=== PATIENT | male | born 1985 | race Caucasian/White ===

== ENCOUNTER 2022-04-25 08:49 | Emergency (ER) | payer OTHER ==
[2022-04-25] MEDS ORDERED: Ondansetron 4 MG Tab.DIS PO STA (09:14)
[2022-04-25] MEDS ORDERED: Ketorolac 60 MG/2 ML SDV IM ONE (09:14)
[2022-04-25] MEDS ORDERED: Ketorolac 60 MG/2 ML SDV ONE (09:30)
[2022-04-25] MEDS ORDERED: Ondansetron 4 MG Tab.DIS ONE (09:30)
[2022-04-25] MEDS ORDERED: fentaNYL 100 MCG/2 ML SDV ONE (10:29)
[2022-04-25] MEDS ORDERED: fentaNYL 100 MCG/2 ML SDV IM STA (10:54)
== END 2022-04-25 11:25 | disposition home or self-care (01) ==
LOC: LB.ED 08:49
DX: S82.832A Other fracture of upper and lower end of left fibula, initial encounter for closed fracture (principal); W00.0XXA Fall on same level due to ice and snow, initial encounter
CPT/HCPCS: 73600-LT; 73630-LT; 96372; 99283-25; J1885; J3010; Q0162